=== PATIENT | female | born 1950 | race Hispanic/Latino ===

== ENCOUNTER → 2025-04-13 | Day surgery (SDC) | payer MEDICARE ==
[2025-04-10 10:38] LABS: BASOPHILS % 0.6 % (0.0-1.0); EOSINOPHILS # (AUTO) 0.1 (0.0-0.4); EOSINOPHILS % 1.8 % (0.0-6.0); HEMOGLOBIN 12.3 g/dL (14.0-18.0); LYMPHOCYTES # (AUTO) 1.8 (1.0-3.2); LYMPHOCYTES % 26.7 % (18.0-39.1); MEAN CORPUSCULAR HEMOGLOBIN 29.8 pg (28-32); MEAN CORPUSCULAR HGB CONC 32.4 g/dL (31-35); MONOCYTES # (AUTO) 0.6 (0.2-0.8); MONOCYTES % 8.6 % (4.4-11.3); NEUTROPHILS # (AUTO) 4.2 (2.1-6.9); PLATELET COUNT 232 x10e3/uL (140-360); RED BLOOD COUNT 4.13 x10e6/uL (4.3-5.7); RED CELL DISTRIBUTION WIDTH 13.9 % (11.7-14.4); WHITE BLOOD COUNT 6.74 x10e3/uL (4.8-10.8)
[~2025-04-13] MED LIST: ACETAMINOPHEN 1000 MG/100 ML 100 ML IV ONE; ACETAMINOPHEN 1000 MG/100 ML IV PRN; ASPIRIN 325 MG TAB PO SCH; ASPIRIN81 MG PO; BUPIVACAINE/EPI 0.5% 30ML SDV-MPF INJ ONE; CELECOXIB 100 MG CAP PO SCH; CRESTOR40 MG PO; DIPHENHYDRAMINE HCL INJ 50 MG/ML VIAL IV PRN; DOCUSATE SODIUM 100 MG CAP PO PRN; FAMOTIDINE 20 MG/2 ML VIAL IV ONE; FENTANYL CITRATE/PF 100MCG/2 ML INJ ONE; HYDROCODONE/APAP 5MG-325MG TAB PO PRN; HYDROCODONE/APAP 7.5MG-325MG 1 EA TAB ONE; HYDROCODONE/APAP 7.5MG-325MG 1 EA TAB PO PRN; HYDROXYZINE HCL10 MG PO; LIDOCAINE HCL 2% LOCAL INJ 5 ML SDV VIAL INJ ONE; ONDANSETRON HCL INJ 2MG/ML 2ML 2 MG/ML VIAL IV PRN; ONDANSETRON HCL INJ 2MG/ML 2ML 2 MG/ML VIAL ONE; PROPOFOL IV EMULSION 50 ML IV ONE; RIVASTIGMINE1.5 MG PO; ROPINIROLE HC0.25 MG PO; ROPIVACAINE/EPI/CLONIDINE/KET 50 ML SYRINGE INJ ONE; RYTARY ER 36.21 EACH PO; RYTARY ER 48.71 EACH PO; SEVOFLURANE INHAL SOLN 250 ML PEN BTL ONE; SODIUM CHLORIDE 0.9% 1000ML 1,000 ML IV SCH; ZESTRIL10 MG PO
[2025-04-13] MEDS: CEFAZOLIN SODIUM 2 GM ONE (07:55)
[2025-04-13] MEDS: DEXAMETHASONE SOD PHOS 10 MG/1 ML VIAL ONE (07:57)
[2025-04-13] MEDS: LACTATED RINGER'S 1,000 ML ONE (07:57)
[2025-04-13] MEDS: GABAPENTIN 300 MG CAP ONE (07:58)
[2025-04-13] MEDS: CELECOXIB 200 MG CAP ONE (07:58)
[2025-04-13] MEDS: FENTANYL CITRATE/PF 100MCG/2 ML INJ ONE (10:50)
[2025-04-13] MEDS: KETOROLAC TROMETHAMINE 30 MG/ML VIAL ONE (10:55)
[2025-04-13] MEDS: HYDROCODONE/APAP 7.5MG-325MG 1 EA TAB PO ONE (11:12)
[2025-04-13 12:15] VITALS: BP 136/74; PULSE 88; RESP 18; O2SAT 96
== END | disposition home or self-care (01) ==
LOC: OR 06:28 → EDSEX 06:28
PROVIDERS: ATTEND Specialist
DX: M17.12 Unilateral primary osteoarthritis, left knee (principal); M25.762 Osteophyte, left knee; I10 Essential (primary) hypertension; E78.5 Hyperlipidemia, unspecified; G20.A1 Parkinson's disease without dyskinesia, without mention of fluctuations; F41.9 Anxiety disorder, unspecified; Z01.812 Encounter for preprocedural laboratory examination; Z79.1 Long term (current) use of non-steroidal anti-inflammatories (NSAID); Z79.82 Long term (current) use of aspirin; Z79.899 Other long term (current) drug therapy; Z68.30 Body mass index [BMI] 30.0-30.9, adult; Z96.651 Presence of right artificial knee joint
CPT/HCPCS: 27447; 36415; 73560; 85025; 86850 ×2; 86900 ×2; 97116; 97161; C1713 ×2; C1776 ×3; J0131; J1100; J1308; J1885; J2003; J2405; J2704; J3010; J7121